=== PATIENT | male | born 1945 | race Caucasian/White ===

== ENCOUNTER → 2021-07-11 14:08 | Outpatient (CLI) | payer OTHER, SELFPAY ==
[2021-07-11 14:38] LABS: Appearance Urine UA CLEAR; Bilirubin Urine UA NEGATIVE (NEGATIVE); Color Urine UA YELLOW; Glucose Urine UA NEGATIVE (Negative); Ketones Urine UA NEGATIVE (NEGATIVE); Leukocyte Esterase Urine UA NEGATIVE (NEGATIVE); Nitrite Urine UA NEGATIVE (Negative); Occult Blood Urine UA NEGATIVE (Negative); Protein Urine UA NEGATIVE (Negative); Specific Gravity Urine UA <=1.005 (1.000-1.035); Urobilinogen Urine UA 0.2 E.U./dL (0.2); pH Urine UA 5.5 (4.5-8.0)
[2021-07-11 14:48] LABS: Add Manual Diff / Slide Review NO; Basophils Absolute Auto 0 /uL (0-100); Basophils Percent Auto 0.7 % (0-2); Eosinophils Absolute Auto 100 /uL (0-450); Eosinophils Percent Auto 1.9 % (2-4); Hematocrit 48.3 % (41-53); Hemoglobin 16.2 g/dL (13.5-17.5); Lymphocytes Absolute Auto 1200 /uL (1100-4500); Lymphocytes Percent Auto 19.4 % (25-40); Mean Corpuscular HGB Conc 33.4 % (30-36); Mean Corpuscular Hemoglobin 30.9 PG (26-34); Mean Corpuscular Volume 92.4 fL (80-100); Monocytes Absolute Auto 500 /uL (0-900); Monocytes Percent Auto 7.8 % (3-14); Neutrophils Absolute Auto 4500 /uL (1500-7000); Neutrophils Percent Auto 70.2 % (50-75); Platelet Count 76 X10^3/uL (150-400); Red Blood Cell Count 5.23 X10^6/uL (4.5-5.9); Red Cell Distribution Width 15.5 % (11.6-14.8); White Blood Cell Count 6.4 X10^3/uL (4.5-11.0)
[2021-07-11 14:50] LABS: Bacteria Urine None Seen; Culture Indicated Urine Cult Not Indicated; RBC Urine None Seen (0-5/HPF); WBC Urine None Seen (0-5/HPF)
[2021-07-11 15:06] LABS: Hemoglobin A1C% w Est Avg Glu 6.1 % (4.0-6.0)
[2021-07-11 15:27] LABS: BUN Creatinine Ratio 19.3 (6-22); Blood Urea Nitrogen 31 mg/dL (9-20); Calcium 10.1 mg/dL (8.4-10.2); Carbon Dioxide 26 mmol/L (22-32); Chloride 105 mmol/L (98-107); Glucose 139 mg/dL (80-110); HEMOLYSIS < 15 (0-50); Potassium 4.4 mmol/L (3.4-5.1); Sodium 140 mmol/L (137-145)
== END ==
PROVIDERS: PCP Internal Medicine; Referring Provider Orthopaedic Surgery; Visit Provider Orthopaedic Surgery
DX: Z01.818 Encounter for other preprocedural examination (principal); Z01.812 Encounter for preprocedural laboratory examination; R73.9 Hyperglycemia, unspecified; N39.0 Urinary tract infection, site not specified
CPT/HCPCS: 36415; 80048; 81001; 83036; 85025; 93005; 93010

== ENCOUNTER → 2021-09-04 10:01 | Outpatient (CLI) | payer OTHER, SELFPAY ==
[2021-09-04 12:38] LABS: COVID19 -Nasal RAPID Negative (Negative)
== END ==
PROVIDERS: PCP Internal Medicine; Visit Provider Family Medicine Sleep Medicine
DX: Z20.822 Contact with and (suspected) exposure to COVID-19 (principal)
CPT/HCPCS: 87635; C9803

== ENCOUNTER 2021-09-05 11:23 | Day surgery (SDC) | payer OTHER, SELFPAY ==
[2021-08-28 09:04] VITALS: BMI 31.4
[2021-09-05] VITALS (17 sets, daily range): BP systolic 121–160; BP diastolic 83–114; PULSE 95–125; RESP 12–20; TEMP 36.1–37; O2SAT 92–98; BMI 31.4
[2021-09-05] MEDS: ACETAMINOPHEN 325 MG TABLET 975 MG PO (12:26)
[2021-09-05] MEDS: LACTATED RINGERS 1,000 ML 42 ML IV (12:27)
[2021-09-05] MEDS: VANCOMYCIN 1,000 MG/200 ML PIGGYBACK 200 MG IV (14:12)
--- NOTE | 2021-09-05 15:00 | DI.RAD.S_ITS ---
PROCEDURE: XR KNEE RT 1TO2V INDICATIONS: Right TKA TECHNIQUE: 2 view(s) of the knee acquired. COMPARISON: [facility] [place], CR, XR KNEE ARTHRITIC SERIES BI, 07/10/2021, 11:04. [facility], CR, XR KNEE 1 OR 2 VIEWS BILATERAL, 12/14/2020, 10:34. FINDINGS: Bones: Patient is status post knee joint arthroplasty. Hardware components are in expected positions. Visualized bony structures are intact. Soft tissues: Overlying postoperative changes are noted. Atherosclerotic calcifications are noted. IMPRESSION: Expected postsurgical changes. Dictated by: Deneen Vora M.D. on 09/06/2021 at 17:33 Approved by: Deneen Vora M.D. on 09/06/2021 at 17:34
--- NOTE | 2021-09-05 15:16 | PM.PREOP ---
Pre-operative Note COVID-19 COVID-19 status: Negative Criteria for continued procedure: Continuing or worsening of significant or severe pain Interval Note History & Physical reviewed/Exam performed by Physician: Yes Changes to H&P: No
--- NOTE | 2021-09-05 15:17 | P.OP_ITS ---
Operative Date/Time/Diagnoses Date of procedure: 09/05/21 Time of procedure: 15:19 Pre-op diagnosis: Right knee osteoarthritis severe Post-op diagnosis: same Procedure & Clinicians Procedure: Right total knee arthroplasty Same procedure as scheduled: Yes Indications: The patient has had progressively worsening right knee pain with radiographic changes consistent with arthritis. Non-operative management has failed and the patient has requested total knee replacement. The risks, benefits and alternatives to surgery were discussed with the patient prior to proceeding. Risks discussed included, but were not limited to, failure to relieve pain, stiffness, infection, nerve damage, deep venous thrombosis, pulmonary embolism, stroke, coma, heart attack, permanent paralysis and , as well as the potential need for eventual revision of the prosthetic. Surgeon: Meri Reis Blending Technician: Tanisha Fox Anesthesia Type: General and Peripheral nerve block Operative Notes Findings: Severe right knee osteoarthritis especially in the medial compartment, adequate bone, good range of motion Closure Type: primary Specimen(s): none sent Prosthetic devices, grafts, tissues, transplants, or devices: Reis and Nephew Journey 8 BCS 2 size 7 femur, size 35 patella, size 6 tibia, +10 poly round patella Applied: drain(s) Estimated Blood Loss (mL): 250 Blood products transfused: none Tourniquet time (min): 28 Procedure in detail: The patient was seen in the pre-operative area, where the patient identified the right knee as the operative site and this was marked with my initials. The patient received pre-operative antibiotics, and was taken to the operating room and placed on the operative table in the supine position. After satisfactory anesthesia, a time motion analyst out was performed. The right leg was encircled with a tourniquet about the proximal thigh, and the leg was prepared from the toes to the tourniquet with ChloroPrep in the usual fashion and draped through sterile drapes. The tourniquet was not elevated initially as the patient had a history of previous vascular issues and was opted to minimize tourniquet time. The knee was approached through an approximately 18 cm incision centered over the patella and carried into the knee through a medial parapatellar arthrotomy. A portion of the medial and lateral meniscus was resected. Soft tissue was carefully mobilized around the patella the patella was measured with a caliper. Bone was resected from the patella and the patellar height was reconstituted with up an appropriate sized patellar component. A cover was then placed on the patella. A small amount of additional medial and lateral meniscus was resected. The distal femur was cut at 5?. A [+2] cut was used. It looked like an appr opriate distal femoral cut and the cut was made without difficulty. An extramedullary guide was used for the tibial cut. 10 mm was resected off the least affected side.The tibia was prepared. The rotation was assessed. The patient was placed in extension residual medial and lateral meniscus as well as any residual bone was carefully resected. [2 mm] additional tibia was resected. Hemostasis was achieved especially posteriorly. Additional local was injected into the posterior capsule. The extension gap was assessed and additional releases for gap balancing were performed as necessary. It was checked with the gap filler shredder helper. The femoral component was trial was placed and the notch was finished. The rotation was assessed and the appropriate size femoral guide was placed on the distal femur and finishing cuts were made. There is no evidence of notching. The anterior, posterior and chamfer cuts were then made. The posterior osteophytes and soft tissues were then removed. The posterior capsule was injected with part of a mixture of 60 ml 0.25% Marcaine mixed with 20 ml Exparel for post operative pain control. The remainder of this mixture was injected into the capsule and subcutaneous tissues during cement curing.l tibial and femoral components were then placed and the knee placed through a range of motion. Range of motion was [0-130], with good stability throughout the range. The leg was elevated and exsanguinated with Eschmark bandage and the tourniquet inflated to [250] mmHg pressure. Tourniquet was inflated during cementing. The trials were then removed, and the tibia was finished. The bone was prepared with pulsatile lavage, and dried with a sponge. Cement was applied and the final prosthetics placed. Excess cement was removed during and after cement curing. A brief Betadine soak was performed. After confirming there was no extruded cement posteriorly, the final tibial insert was placed. The knee was copiously irrigated and the tourniquet deflated. Hemostasis was obtained with the [Aquamantys system]. A drain was placed and brought out superolaterally. The capsule was closed with interrupted nonabsorbable suture. The subcutaneous layer was closed with barbed sutures, and the skin with a running 3-0 V-Lock suture and Surgical glue. An Mediasmart Ag dressing was applied and the patient was taken to recovery having tolerated the procedure well. Complications: none Post-operative Condition: stable Disposition: Acute Care Plan for aftercare: The patient will be maintained on a standard total knee replacement protocol with weight bearing as tolerated. The patient will receive Xarelto and sequential compression devices for DVT prophylaxis. The patient will be discharged home when safe for the home environment.
[2021-09-05 15:24] LABS: Hematocrit 48.3 % (41-53); Mean Corpuscular Hemoglobin 30.6 PG (26-34); Mean Corpuscular Volume 92.8 fL (80-100); Platelet Count 54 X10^3/uL (150-400); Red Blood Cell Count 5.21 X10^6/uL (4.5-5.9); Red Cell Distribution Width 15.6 % (11.6-14.8); White Blood Cell Count 5.8 X10^3/uL (4.5-11.0)
--- NOTE | 2021-09-05 15:49 | P.PCN_ITS ---
Procedures Date/Time Date of procedure: 09/05/21 Time of procedure: 15:50 Nerve Block Time out performed: Yes Local anesthetic used: lidocaine 1% (5mL + 15mL 0.5% ropivacaine) Location of anesthetic used: adductor canal Amount of anesthesia used (mL): 20 Nerve blocks: femoral (adductor canal) Procedure successful: Yes Patient tolerated procedure: well Complications: none Additional comments: Adductor canal block for post operative pain management. R/B discussed. Site marked. Consent verified/signed. Standard ASA monitors. NC O2. Chloroprep. Sterile technique. Femoral A/V/N identified medial mid thigh with US. Lidocaine skin wheal. 100mm x 21g Pajunk needle advanced with in-plane US guidance. Negative aspiration. LA injected medial and lateral to femoral artery. Negative aspiration throughout. No pain, no paresthesia with i njection. VSS. Tolerated well. To OR.
[2021-09-05] MEDS: CEFAZOLIN 2 GM/20 ML SYRINGE IV ×2 (15:55→19:52)
[2021-09-05] MEDS: TRANEXAMIC ACID 1,000 MG VIAL 2000 MG INJ ×2 (15:58→16:35)
--- NOTE | 2021-09-05 15:59 | SUR.PREOP ---
Block start time 1533 . Monitoring initiated and maintained throughout procedure. RN assisted medications given per anesthesiologist instructions. Patient remained stable throughout procedure, no adverse reactions noted. Block end time 1542. No sedation or narcotics given.
--- NOTE | 2021-09-05 16:24 | SUR.OPER ---
Supine on padded OR bed. Pillow under head, arms secured on padded armboards <90 degree abduction. Safety belt across torso. Left, Non-operative leg secured with tape over blanket over lower leg. Right, Operative leg secured in DeMayo positioner and in control of the Surgeon. Foam padded brace at thigh of operative leg.
[2021-09-05] MEDS: BUPIVACAINE LIPOSOME 266 MG/20 ML VIAL INJ (16:33)
[2021-09-05] MEDS: BUPIVACAINE 0.25% (PF) 60 ML, EPINEPHrine 0.3 MG INJ (16:34)
--- NOTE | 2021-09-05 19:13 | PC.NURSE ---
Pt arrived from PACU to unit at 1903, He is A&Ox3, drinking sips of water, on RA. HR 100's, DBP slightly elevated in 100's, afebrile. He reports pain to R knee 4-5/10 denies numbness or tingling to lower extremities +CMS. NAE wrap to R knee C/D/I, He denies n/v. at bedside supportive. Oriented to the room, bed and call light. Endorsed report to oncoming RN to complete admission assessment.
[2021-09-05] MEDS: LACTATED RINGERS 1,000 ML 100 ML IV (19:48)
[2021-09-05] MEDS: DOCUSATE 100 MG CAPSULE PO (20:31)
[2021-09-05] MEDS: ACETAMINOPHEN 325 MG TABLET 650 MG PO (20:31)
[2021-09-05] MEDS: IBUPROFEN 400 MG TABLET PO (20:31)
[2021-09-05] MEDS: LOSARTAN 50 MG TABLET 100 MG PO (21:12)
--- NOTE | 2021-09-05 22:13 | PC.NURSE ---
Pt. admitted to room 208 from PACU accompanied by his @ 190. Oriented to his room showed bed & TV controls . Call light with in reach & bed alarm activated. Denies any recent fall for the last [address] Reis was called to notify B/P was 160/114 & HR. 125, ordered to give his home medication Losartan 100 mg. pt. reported he missed his morning dose this morning. Losartan 100 mg. admin.Will cont. POC & monitor.
[2021-09-06 02:47] VITALS: BP 129/105; PULSE 106; RESP 18; TEMP 36.6; O2SAT 95
[2021-09-06] MEDS: CEFAZOLIN 1 GM VIAL 2 GM IV (03:20)
[2021-09-06] MEDS: CEFAZOLIN 2 GM/20 ML SYRINGE IV (03:22)
[2021-09-06 05:11] LABS: Hemoglobin 14.8 g/dL (13.5-17.5)
[2021-09-06] MEDS: LACTATED RINGERS 1,000 ML 100 ML IV (06:09)
--- NOTE | 2021-09-06 06:50 | PC.NURSE ---
Heart rate still up to 120's-130's but not sustaining, sometimes his heart rate in the 80's. Patient asymptomatic no C/O CP, denies heart palpitation & no C/O any discomfort. Declined his 0100 & 0500 dose of scheduled Ibuprofen. Will report to day RN & monitor.
[2021-09-06 08:40] VITALS: BP 138/90; PULSE 98; RESP 18; TEMP 36.9; O2SAT 96
--- NOTE | 2021-09-06 09:45 | PT.IIE ---
Current Diagnoses Unilateral primary osteoarthritis, right knee (09/05/21) Presence of unspecified artificial knee joint (09/05/21) Surgery Performed Operation Date: 09/05/21 14:00 Actual Procedures p Total Knee Arthroplasty(Right) - Meri Reis MD Medical History (Last Updated 08/28/21 @ 09:28 by Marti Phan RN) Afib Chronic kidney disease Easy bruisability GERD (gastroesophageal reflux disease) Gout Hearing loss History of alcoholism History of coronary angiogram HLD (hyperlipidemia) HTN (hypertension) Osteoarthritis Pre-diabetes Thrombocytopenia Vertigo Physical Therapy Inpatient Evaluation/Re-Eval M1 PT/OT-IP Prior Functional Status Start: 09/06/21 13:16 Freq: NEEDED Status: Active Protocol: Document 09/06/21 09:25 AB (Rec: 09/06/21 14:13 AB [id number]) Medical Review Prior Functional Status Medical History Reviewed Yes Communication able to make needs known Mobility and Gait pt stated that he is independent with all mobilities and ambulation without AD Social History Household Members spouse Living Arrangements House Number of Floors (Floors) Two Floors Number of Stairs To Enter/Railing? pt will stay on main level of the house 4 steps to enter with L rail ascending Home Environment High Toilet,Walk in Shower, Built-In Shower Seat Home Equipment Four Wheel Walker,Hand Held Shower,Grab Bars In Shower Additional Social History Comment pt stated that he plans to sleep on his recliner chair for the first few days M2 PT-IP Current Condition Start: 09/06/21 13:16 Freq: NEEDED Status: Active Protocol: Document 09/06/21 09:25 AB (Rec: 09/06/21 14:13 AB [email or web address]) Physical Therapy Current Condition Current Condition Evaluation Date 09/06/21 Treatment Diagnosis s/p R TKA; difficulty in walking Onset Date 09/05/21 M3 PT-IP Subjective Start: 09/06/21 13:16 Freq: NEEDED Status: Active Protocol: Document 09/06/21 09:25 AB (Rec: 09/06/21 14:13 AB [id number]) Subjective Physical Therapy Visit Type Type Initial Evaluation Visit Start Time 09:25 Visit Stop Time 10:10 Total Visit Minutes 45 Number of VESSEL CAPTAIN Visits 0 Physical Therapy Visit Comments Patient Comments pt is agreeable to do PT Therapy Pain Assessment Pain Present Pain Present Denied Pain M4 PT-IP Mobility and Gait Start: 09/06/21 13:16 Freq: NEEDED Status: Active Protocol: Document 09/06/21 09:25 AB (Rec: 09/06/21 14:13 AB [id number]) PT-Bed Mobility Assessment Supine to Sit Supine to Sit Standby Assistance PT-Transfer Assessment Sit to and From Stand Sit to and from Stand Standby Assistance,Contact Guard Assistance Equipment Transfer Assistive Device Gait Belt,Front Wheeled Walker Orthotic/Prosthetic Devices or Brace: No Transfers Transfer Destination Bed,Chair Transfer Technique ambulated Transfer Ability Level of Assist Standby Assistance,Contact Guard Assistance,1 Person Assistance,Use of Upper Extremities Comments Mobility Comments pt completed supine to sit SBA . able to sit on EOB SBA. completed sit to stand CGA and ambulated using FWW SBA to CGA ~ 30 ft. cued for steadiness. Pt has a 4WW and prefers to use a 4WW. educated on 4WW use. completed sit to stand SBA and ambulated out in the hallway using 4WW SBA to occasional CGA ~ 150 ft. educated pt on stiar climbing. completed up/down steps using L rail ascending SBA to CGA. pt ambulated back to his room. Sat on chair and positioned. call light and table placed within reach. Gait Assessment Gait Gait Assistance Required: Standby Assistance,Contact Guard Assist Distance (Feet) 150 Able to Maintain Weight Bearing Status Yes During Gait Assistive Devices Assistive Device Gait Belt,Front Wheeled Walker ,4 Wheeled Walker Orthotic/Prosthetic Devices or Brace: No Gait Deviations General Gait Pattern Antalgic,Decreased Stride Length,Decreased Feet Clearance Factors Limiting Gait Function Factors Limiting Gait Function Decreased Activity Tolerance, Decreased Sensation,Decreased Strength,Limited Range of Motion,Poor Balance,Poor Safety Awareness Stair Climbing Assessment Evaluation Level of Assist On Stairs Standby Assistance,Contact Guard Assistance Devices Stair Climbing Assistive Devices Left Railing Technique/Endurance Stair Climbing Direction Ascend and Descend Stair Climbing Technique Step to Step Number of Steps Climbed 3 Query Text: Stair Climbing Set # Repetitions (reps) 2 PT-Balance Assessment Sitting Balance and Reactions Static Sitting Balance Ability Good Dynamic Sitting Balance Ability Good Standing Balance and Reactions Static Standing Balance Ability Fair Dynamic Standing Balance Ability Fair Device Used FWW M5 PT-IP Objective Assessments Start: 09/06/21 13:16 Freq: NEEDED Status: Active Protocol: Document 09/06/21 09:25 AB (Rec: 09/06/21 14:13 AB [email or web address]) Orientation Orientation/Cognition Level of Alertness Alert Orientation Name,Place,Situation Language Function Ability No Deficits Noted Safety Awareness Understands Safety Issues Memory Description No Deficits Noted Gross Range of Motion Lower Extremity ROM Impairments R knee flexion: ~ 90 deg R knee extension: ~ 15 deg less to 0 Strength Lower Extremity Strength Assessment Right Impaired Hip 4/5 Knee 4-/5 Sensation Assessment Sensation Gross Sensation WNL Muscle Tone Muscle Tone WNL Yes M6 PT-IP Treatment Start: 09/06/21 13:16 Freq: NEEDED Status: Active Protocol: Document 09/06/21 09:25 AB (Rec: 09/06/21 14:13 AB [id number]) Physical Therapy Treatment Education Education Provided Precautions,Weight Bearing Status,Post-Op Packet,Safety M7 PT-IP Assessment and Plan Start: 09/06/21 13:16 Freq: NEEDED Status: Active Protocol: Document 09/06/21 09:25 AB (Rec: 09/06/21 14:13 AB [email or web address]) PT Summary Assessment and Plan Potential Rehabilitation Potential Good Status of Condition at Evaluation Stable Summary Impairments Pain,ROM,Strength,Balance, Coordination,Sensation,Tone, Cognition,Bed Mobility, Transfers,Gait,Activity Tolerance Assessment Summary Pt requiring SBA to CGAwith mobility. pt plans to go home and spouse to assist him. pt has outpt PT set up. pt may go home when stable. Goals Bed Mobility Goal Independent Transfer Goal Independent,Four Wheeled Walker Gait Goal Independent,Four Wheel Walker Gait Distance 250 Other Goals up/down 4 steps L rail ascending mod I Days to Meet Goals 3 Frequency of Treatment Frequency Of Treatment Twice a Day Treatment Plan Physical Therapy Treatment Plan Bed Mobility Training,Transfer Training,Gait Training, Therapeutic Exercise,Balance Retraining,Post Op Education, Discharge Planning,Hot or Cold Pack,Neuromuscular Re-ed, Coordination Retraining,Manual Therapy Weight Bearing Status Weight Bearing Status Weight Bear as Tolerated Allowed Weight Bearing Amount (enter % RLE WBAT or #) (%) Recommendations To Nursing Amount of Assist Needed 1 Person Assist Discharge Recommendations PT Discharge Recommendations Home with Assistance, Outpatient PT Transportation Needs at Discharge Private Vehicle
[2021-09-06 09:53] VITALS: BP 138/90; PULSE 98
[2021-09-06] MEDS: LOSARTAN 50 MG TABLET 100 MG PO (09:53)
[2021-09-06] MEDS: DOCUSATE 100 MG CAPSULE PO (09:54)
[2021-09-06] MEDS: ACETAMINOPHEN 325 MG TABLET 650 MG PO (09:54)
[2021-09-06] MEDS: IBUPROFEN 400 MG TABLET PO (09:54)
--- NOTE | 2021-09-06 10:29 | P.DS_ITS ---
History of Present Illness History of Present Illness Date Patient Seen: 09/06/21 Time Patient Seen: 07:00 Chief complaint: RIGHT TKA *OPB* Narrative: Operative Date/Time/Diagnoses Date of procedure: 09/05/21 Time of procedure: 15:19 Pre-op diagnosis: Right knee osteoarthritis severe Post-op diagnosis: same Procedure & Clinicians Procedure: Right total knee arthroplasty Same procedure as scheduled: Yes Indications: The patient has had progressively worsening right knee pain with radiographic changes consistent with arthritis. Non-operative management has failed and the patient has requested total knee replacement. The risks, benefits and alternatives to surgery were discussed with the patient prior to proceeding. Ris ks discussed included, but were not limited to, failure to relieve pain, stiffness, infection, nerve damage, deep venous thrombosis, pulmonary embolism, stroke, coma, heart attack, permanent paralysis and , as well as the potential need for eventual revision of the prosthetic. Surgeon: Meri Reis Patent Leather Sorter: Tanisha Fox Anesthesia Type: General and Peripheral nerve block Operative Notes Findings: Severe right knee osteoarthritis especially in the medial compartment, adequate bone, good range of motion Closure Type: primary Specimen(s): none sent Prosthetic devices, grafts, tissues, transplants, or devices: Reis and Nephew Journey 8 BCS 2 size 7 femur, size 35 patella, size 6 tibia, +10 poly round patella Applied: drain(s) Estimated Blood Loss (mL): 250 Blood products transfused: none Tourniquet time (min): 28 Discharge Providers Provider Date of admission: 09/05/2021 Discharge Date: 09/06/21 Primary care physician: Brandon Rouse MD Consults: 09/05/21 06:00 Consult to Anesthesiology Routine Comment: Consulting Provider: Anesthesiologist Reason for consultation: Regional block for post operative pain control 09/05/21 18:57 Consult to Discharge Planning Routine Comment: Consult to Physical Therapy Evaluate & Treat Comment: Physician Instructions: postop TKA protocol Consult to Respiratory Therapy Evaluate & Treat Comment: Physician Instructions: Evaluate and treat Discharge provider: Juanita Crawford PA-C Summary Hospital Course Discharge Diagnosis: s/p right TKA Hospital Course: Mr Galindo's hospital course was unremarkable. On POD#1 he was feeling well and wanted to go home. Pain was well-controlled without narcotics. He was eating and voiding without difficulty or assistance. He was evaluated by PT prior to discharge. Exam Vital Signs (past 8 hours): - 03/04/22 02:47 09/06/21 08:40 09/06/21 09:53 Temperature 97.8 F 98.5 F Pulse Rate 106 H 98 H 98 H Respiratory Rate 18 18 Blood Pressure 129/105 H 138/90 138/90 Pulse Oximetry 95 96 Fraction of Inspired Oxygen 21 Oxygen Delivery Method Room Air Oxygen Flow Rate 0 Narrative Exam Narrative: AA&O x 3. 5/5 strength in quadriceps, hamstrings, DF, PF, EHL bilaterally. Sensation to light touch intact throughout BLE. Calves soft, compressible, and nontender and without palpable cords or masses. Objective Labs Result Diagrams: 09/06/21 04:50 Labs: Laboratory Results - last 24 hr 09/05/21 09/06/21 15:15 04:50 WBC 5.8 RBC 5.21 Hgb 16.0 14.8 Hct 48.3 45.0 MCV 92.8 MCH 30.6 MCHC 33.0 RDW 15.6 H Plt Count 54 L PFSH Medical History (Updated 08/28/21 @ 09:28 by Marti Phan RN) Afib Chronic kidney disease Easy bruisability GERD (gastroesophageal reflux disease) Gout Hearing loss History of alcoholism History of coronary angiogram HLD (hyperlipidemia) HTN (hypertension) Osteoarthritis Pre-diabetes Thrombocytopenia Vertigo Surgical History (Updated 09/06/21 @ 07:42 by Juanita Crawford PA-C) History of surgery (2019) Hx of arthroscopy of right knee Hx of hernia repair Hx of tonsillectomy S/P AVR (aortic valve replacement) (11/16/19) Social History household members: spouse Smoking Status: Former smoker alcohol intake: former Discharge Assessment & Plan Assessment and Plan Assessment: POD#1 s/p right total knee arthroplasty Plan of Treatment: Discharge home Pain control w/ Tylenol, vistaril, and minimal oxycodone VTE prophylaxis w/ Xarelto (pt takes for arrhythmia) Outpt PT Discharge Plan Discharge Plan Patient Disposition: Home Discharge orders & Medications Discharge Orders: Discharge (Order); Ordered 09/06/21 Ordered By: Juanita Crawford Prescriptions: New acetaminophen 325 mg Tablet 650 mg PO TID Qty: 90 1RF docusate sodium 100 mg Capsule 100 mg PO BID Qty: 60 2RF oxycodone 5 mg Tablet 5 mg PO Q6H PRN (Reason: severe pain) Qty: 10 0RF Continued atorvastatin 40 mg Tablet 40 mg PO QPM 0RF losartan 100 mg Tablet 100 mg PO QAM 0RF Xarelto 20 mg Tablet 20 mg PO DAILY 0RF Rx Instructions: must administer with evening meal Discontinued aspirin [Aspir-Low] 81 mg Tablet,Delayed Release (Dr/Ec) 81 mg PO DAILY 0RF Follow up/Referrals: Brandon Rouse MD [Primary Care Provider] - Meri Reis MD [Physician] - As previously scheduled (Follow up with Dr Reis on 09/18/2021 @ 1:30 pm at [facility]) Discharge Health Status Health Concerns: Discuss the need for restarting aspirin with your PCP. Diet/Activity/Treatments Diet: Diet as Tolerated Activity: Weight bearing as tolerated to RLE. Walk frequently! Cold/Heat Therapy: Ice to knee as needed for pain. Skin/Wound/Dressing Care Report to your healthcare provider any signs of infection, such as:: chills, fever, night sweats, increased pain, unusual drainage and unusual redness Dressing: Can remove NAE wrap. May shower. Leave Aquacel dressing in place until follow up with Dr Reis. No bathing or otherwise soaking incision. Call office if Aquacel becomes saturated inside. Visit Report/Discharge Packet Instructions: DI for Knee Replacement Stand Alone Forms: Surgery Discharge Discharge Data Primary Care Provider: Brandon Rouse Attending Provider: Meri Reis Quality VTE Deep Vein Thrombosis/Pulmonary Embolism Present on Admission: No
--- NOTE | 2021-09-06 10:31 | CM.DANOTE ---
DCP: Case received, EMR reviewed and met with patient. Introduced self and role. Was able to obtain information from patient regarding his baseline activity status prior to hospitalization. DCP assessment completed with information currently available. Patient is a 75 year old male who admitted yesterday morning to the care of the hospitalist team. PCP: Dr. Rouse. Payer: confirmed: [facility] Advantage. Patient came to the hospital via private vehicle for a surgical procedure. He had right total knee arthroplasty. Patient carey history of right knee osteoarthritis. Met with patient in his room. He is pleasant, alert and oriented. Patient resides in [place] with his spouse, Suzi. At his baseline, he is independent, walks his dog. 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 P: Patient has discharge orders for home today pending working with physical therapy. Felicia Mojica RN/Drop Hammer Pile Driver Operator Discharge Planning/Care Management CM Discharge Assessment Start: 09/06/21 10:29 Freq: Status: Active Protocol: Document 09/06/21 10:30 (Rec: 09/06/21 10:31 [id number]) Discharge Planning Assessment Assigned Plant Health Care Technician Felicia Mojica RN/Drop Hammer Pile Driver Operator Advance Directives? Yes Advance Directives on File No History Provided By Patient,Medical Record Prior Living Arrangements House Household Members spouse Type of transporation used prior to Drives own vehicle admit Independent with ADL's Yes Is patient alert and oriented? Yes Caregiver for Another No Patient/Family Preference OP PT Therapy Barriers to Discharge No Discharge Plan Home Transportation Arrangement Spouse Referrals Initiated None needed Whiteboard Updated in Patient Room with Yes name and ext. # of Plant Health Care Technician Review Status In Process Next Review Type Continued Stay Review Pre-Anesthesia Assessment Start: 08/28/21 09:04 Freq: Status: Complete Protocol: Document 08/28/21 09:04 [facility] (Rec: 08/28/21 09:37 [facility] [id number]) Pre-Anesthesia Assessment Preferred Name Kalia Patient Information Reviewed Via Phone Assessment Assessment Completed With Patient Diagnostic Results BMP/CMP,CBC,EKG Comment Labs/ECG @ [facility] 07/11/21, COVID screen-needs to schedule Primary Care Provider Brandon Rouse Seen Specialist in Last 12 Months Yes Specialist Seen Mortgage Loan Officer Originator,Youtuber, Orthopedist Primary Language Malian Fish Packer Required No Height 6 ft Weight 232 lb Body Mass Index (BMI) 31.4 Hearing Ability Hard of Hearing Visual Assist Magnifying Glass Dentition Type Teeth, Natural Present Barriers to Learning Auditory Hx Anesthesia Reactions No Hx Family Anesthesia Reaction No Hx Malignant Hyperthermia No Hx Blood Transfusions No Anesthesia Review Requested Yes: Previously reviewed prior to scheduling Additional comment AR scanned to record alcohol intake former Alcohol Intake Frequency Other: History of alcoholism, sober x 30 years Smoking Status Former smoker Smoking packs per day 3 how long ago did patient quit smoking Quit over 30 years ago Substance Use Type does not use Pain Present Pain Reported Musculoskeletal Symptoms Abnormal Gait,Difficulty Walking,Joint Pain History of Falling (Recent or History of No ) Patient is completely paralyzed or No completely immobile Mental Status Oriented to own ability Is patient on oxygen? No Does patient have WINN/SOB No Hx Sleep Apnea No Currently Taking a Beta Donald No Hx Chest Pain No Hx SOB No Hx Syncope or Dizziness Yes: Hx of syncope, vertigo Anti-Coagulant Therapy Yes: Xarelto-pt will check w/ cardiology on when to hold Has a Mortgage Loan Officer Originator Yes: Dr. Alvarenga-last visit Cardiac Testing No Hx Pacemaker/ICD No Pacemaker Rep Required? No Cardiac Clearance Received Yes Comment Cardiac records scanned Diet Type At Home Low Carb dysphagia No Gastrointestinal Symptoms Constipation,Reflux Bladder Pattern Nocturia Urinary Catheter Present No Hx Urinary Self Catheterization No Diabetes No: Pre-diabetes Hx Drug Resistant Organism No Presence of External or Internal Medical Yes: Hearing aids Devices Have you had any close contact with No someone diagnosed with COVID-19? Received a COVID vaccine? Yes Received all doses? Yes Marital Status Lives With spouse Prior Living Arrangements House Number of Floors (Floors) Two Floors Support System Spouse Does the Patient Have Assistance After Yes Surgery Patient Discharge Plan Description Return Home Comment Pt advised possible same day surgery per surgeon Feels Safe in Current Environment Yes Been Physically Hurt or Threatened By a No Person in Current Environment Do you have thoughts of harming yourself None or others? Are you currently considering suicide? No Do you have a plan to hurt yourself or No Plan others? Do You Have Any Spiritual Beliefs That No May Affect Your HC Choices? Do You Have Any Cultural Practices That No May Affect Your HC Choices? Comment Jehovah'S Witness Who Can We Speak to About Patient's Care Family, friends Identifying Code for Release of Patient Declines to issue Information Health Care Proxy/Next of Kin Suzi () Health Care Proxy Emergency Contact Name Ramirez (son) Emergency Contact Advance Directives? Yes Advance Directives on File No Requested Patient Bring Advanced Yes Directives DOS Power of Strategy Associate Yes Power of Strategy Associate Name Suzi () Power of Strategy Associate PAC Instructions Durable medical equipment, Medications to take/avoid, Nasal antibiotic,No ETOH/ petroleum product on skin DOS, NPO,Post-op transportation,Pre -surgical wash,Sturdy shoes/ comfortable clothes,Do not bring valuables and remove jewelry
--- NOTE | 2021-09-06 17:16 | PC.NURSE ---
Pt A&Ox3, pleasant and talkative this a.m. He reports minimal pain to his knee and is voiding and ambulating this a.m. as well as taking adequate po intake without any difficulty. VSS, afebrile on RA. He has full sensation, and pedal pulses +2, very mild edema to surgical leg, [place] wrap c/d/I. PT at bedside working with patient and clears him for discharge home per Ortho orders. Pt verbalized understanding of plan for discharge including medications, activity, site care, s/sx of worsening symptoms, infection and follow up care. He is escorted via w/chair by the [facility] this a.m. with all of his belongings including his FWW to private vehicle with his and family for discharge home at approximately 1155.
== END 2021-09-06 11:55 | disposition home or self-care (01) ==
LOC: OR 11:28 → AC 11:28
PROVIDERS: Anesthesiology; PCP Internal Medicine; Referring Provider Internal Medicine; Visit Provider Orthopaedic Surgery
PROC: 0SRC0JZ Replacement of Right Knee Joint with Synthetic Substitute, Open Approach (ICD-10-PCS; CPT 27447; principal; 2021-09-05 14:00)
DX: M17.11 Unilateral primary osteoarthritis, right knee (principal); I48.91 Unspecified atrial fibrillation; I10 Essential (primary) hypertension; E78.5 Hyperlipidemia, unspecified; I51.9 Heart disease, unspecified
CPT/HCPCS: 27447; 36415; 64450; 73560; 85014; 85018; 85027; 94760; 97161; 97530; C1776; C1713; C9290; J0171; J0690; J1100; J2405; J2704; J3010